=== PATIENT | male | born 1965 | race Caucasian/White ===

== ENCOUNTER → 2016-08-05 | Outpatient (CLI) | payer BC ==
[~2016-08-05] MED LIST: Iopamidol 755 MG/ML 500 ML Multipack Bottle IVPUSH STA
--- NOTE | 2016-08-06 16:17 | CT ---
EXAM DATE: 08/05/16 PATIENT'S AGE: 50 Patient: NARA STEVENSON Facility: [place], [place] Site . Site : 1965 Study: CT Abdomen/Pelvis [id number] 3:52:58 PM Ordering Physician: Lauri Lopez Final Report: HISTORY: Abdominal pain. Comparison: None. Technique: CT of the abdomen without and with intravenous contrast. Noncontrast imaging of the abdomen, followed by arterial and portal venous phase imaging. 100 cc of Isovue-370 IV. Coronal/sagittal reconstruction images. Findings: Lung bases: There is note pleural or pericardial effusion. There is milder on the mass 2. The lung bases demonstrate minimal dependent atelectasis. There is note basilar pneumo thorax. There is no acute airspace disease. No honeycomb formation. No traction bronchiectasis. Abdomen: Noncontrast images demonstrate normal liver attenuation. Normal hepatic morphology. No adrenal mass. No hydronephrosis. No perinephric inflammatory stranding. Uniform density in the pancreas. The pancreatic duct dilation. Note glandular atrophy. The arterial phase images demonstrate no adrenal mass. Symmetric nephrograms. The visceral artery branches are patent. There is no abdominal aortic aneurysm. Known hypervascular liver lesion. Portal venous phase images demonstrate mil hyperdense liver mass. The hepatic veins, portal vein on its branches, SMV, splenic vein are patent. Spleen size is normal. No renal mass. No abdominal lymphadenopathy. Normal caliber appendix. Nose small-bowel or colonic obstruction. The bone windows demonstrate known lytic or blastic bone lesions in the lower thoracic or lumbar spine. The alignment is preserved. Impression: 1. No findings to indicate acute or chronic pancreatitis. 2. Uniform enhancement of the pancreas, with no evidence for necrosis. 3. No pseudoaneurysm on arterial phase imaging. 4. Normal caliber biliary tree. 5. No abdominal lymphadenopathy. Dictated by Percy Pham MD @ Aug 05 2016 9:12PM (Electronic Signature) Report Signed by Proxy. [facility] CENTERMyranda
== END ==
LOC: MW.DI 14:49
PROVIDERS: ATTEND Family Medicine
DX: R10.9 Unspecified abdominal pain (principal)
CPT/HCPCS: 74170; Q9967

== ENCOUNTER 2020-07-12 00:09 | Emergency (ER) | payer BC ==
[2020-07-12 02:12] LABS: BLOOD UREA NITROGEN,BUN 14 mg/dL (7.0-18.0); CARBON DIOXIDE,CO2 28.1 mmol/L (21.0-32.0); CHLORIDE,CL 102 mmol/L (98-107); GLUCOSE RANDOM 108 mg/dL (74-106); POTASSIUM,K 4.1 mmol/L (3.5-5.1); SODIUM,NA 139 mmol/L (136-148)
[2020-07-12] MEDS ORDERED: Sulfamethoxazole/Trimethoprim 800-160 MG Tab PO ONE (02:27)
--- NOTE | 2020-07-12 03:14 | CR ---
Indication: Pain, redness, and cellulitis, recent nail in foot Technique: Three views of the left foot Comparison: None Findings/Impression: No evidence of fracture or osseous erosion. No radiopaque foreign body. No significant edema appreciable by radiography. No evidence of subcutaneous emphysema. Dictated by Jorge Johnson MD @ Jul 12 2020 2:45AM Signed by Dr. Jorge Johnson @ Jul 12 2020 3:13AM
--- NOTE | 2020-07-12 03:29 | EDM.PDOC ---
ED HPI GENERAL MEDICAL PROBLEM - General Chief Complaint: Skin Complaint Stated Complaint: STEPPED ON NAIL, LEFT FOOT Time Seen by Provider: 07/12/20 00:58 - History of Present Illness INITIAL COMMENTS - FREE TEXT/NARRATIVE: CHIEF COMPLAINT(S): Skin infection HISTORY OF PRESENT ILLNESS: This is a 54-year-old man with a past medical history of recent nail injury to patient's left foot who is on antibiotics who comes to the emergency department with a chief complaint of skin infection. The patient states that approximately 2 days ago he accidentally stepped on a nail and it went into the bottom of his left foot. He states that he followed up with his primary care physician where they removed the nail, gave him a tetanus shot and provided him with Keflex and ciprofloxacin. He states that he is currently not having any pain but he was instructed to come to the emergency department if the redness worsened outside the blue line that they tammy at the clinic. He denies any fevers, chills, purulent drainage. REVIEW OF SYSTEMS: Constitutional: Denies fever, chills. Eyes: Denies eye pain Ears, Nose, Mouth, & Throat: Denies earache Cardiovascular: Denies chest pain Respiratory: Denies shortness of breath Gastrointestinal: Denies Nausea, vomiting, diarrhea, hematochezia. Genitourinary: Denies hematuria Skin: Positive for redness to left foot MSK: Denies joint pain Neurological: Denies blurred vision, numbness, tingling, weakness Psychiatric: Denies depression PAST MEDICAL HISTORY: As per history of present illness and as reviewed below otherwise noncontributory. SURGICAL HISTORY: As per history of present illness and as reviewed below otherwise noncontributory. SOCIAL HISTORY: As per history of present illness and as reviewed below otherwise noncontributory. FAMILY HISTORY: As per history of present illness and as reviewed below otherwise noncontributory. EXAMINATION OF ORGAN SYSTEMS/BODY AREAS: Constitutional: Blood pressure was 148/72, heart rate 81, respiratory rate 18 with an oxygen saturation of 98% on room air. Temperature 36.8 General: Overall well-appearing man who is in no acute distress Psychiatric: Appropriate mood and affect. Eyes: No scleral icterus or conjunctival erythema ENMT: Moist mucous membranes. No pharyngeal erythema Cardiovascular: Regular, rate, and rhythm. No gallops, murmurs, or rubs. Bilateral upper extremity and lower extremity pulses symmetric and intact. No peripheral edema. No JVD. Respiratory: Lungs clear to auscultation bilaterally. No wheezes, rales, or rhonchi. Gastrointestinal: Soft, non-tender, non-distended. Normoactive bowel sounds Genitourinary: No suprapubic tenderness Musculoskeletal: The patient has full range of motion of the toes the ankle on the left foot without any pain. There is no significant swelling or deformity. Skin: Puncture lesion to the plantar aspect of the left foot without any surrounding erythema or purulent drainage. No fluctuance or induration. No crepitus. On the top of the patient's left foot there is evidence of a prior marker with erythema and some warmth which has extended past the marker posteriorly towards the ankle. Neurological: Alert, GCS 15 distal sensation is intact. MEDICAL DECISION MAKING AND COURSE IN THE ED WITH INTERPRETATION/REVIEW OF DIAGNOSTIC STUDIES: This is a 54-year-old man with a recent nail injury to the left foot with cellulitis who is on Keflex and ciprofloxacin who comes to the emergency department with worsening of the cellulitis. At this time we will obtain a repeat left foot x-ray. Patient is currently no pain therefore no pain medication will be administered. Will obtain basic labs. Given the failed outpatient therapy we will change the patient antibiotics to Bactrim to cover for MRSA. Laboratory: CBC is unremarkable. BMP reveals hyperglycemia at 108 otherwise unremarkable. The radiological images were viewed by myself along with reading the report from the radiologist. Left foot x-ray does not reveal any fracture or erosion. No subcutaneous emphysema or free air. After labs and imaging I did discuss results with the patient. I encouraged the patient to switch his antibiotic to Bactrim. He is to continue elevating the leg and applying ice and using pain medications as needed. If he has worsening of the redness would like him to return to the emergency department. I do recommend he follows up with orthopedics given the nail injury. He was amenable to discharge at this time and had no further questions DISPOSITION: The patient was discharged home in stable condition. The patient will follow up with orthopedics within 3 to 5 days CONDITION: Fair PROCEDURES: None FINAL IMPRESSION(S)/DIAGNOSES: 1. Acute cellulitis of the left foot, failed outpatient antibiotics Fareed Bangura M.D. Lfoot Pain Score (Numeric/FACES): 6 - Related Data Allergies Allergy/AdvReac Type Severity Reaction Status Date / Time No Known Allergies Allergy Verified 07/12/20 00:57 Home Meds: Home Meds Ciprofloxacin [Cipro XR] 500 mg PO BID 07/12/20 [History] Sulfamethoxazole/Trimethoprim [Bactrim Ds Tablet] 1 each PO BID #20 tablet 07/12/20 [Rx] cephALEXin [Cephalexin] 250 mg PO QID 07/12/20 [History] Past Medical History HEENT History: Reports: None Cardiovascular History: Reports: High Cholesterol Respiratory History: Reports: None Gastrointestinal History: Reports: GERD Genitourinary History: Reports: None Musculoskeletal History: Reports: None Neurological History: Reports: None Endocrine/Metabolic History: Reports: Obesity/BMI 30+ Hematologic History: Reports: None - Infectious Disease History Infectious Disease History: Reports: Chicken Pox, Mumps - Past Surgical History Head Surgeries/Procedures: Reports: None HEENT Surgical History: Reports: Naso-Sinus Surgery Other HEENT Surgeries/Procedures: Hx of sinus surgery. Musculoskeletal Surgical History: Reports: Arthroscopic Procedure Other Musculoskeletal Surgeries/Procedures:: shoulder arthroscopy - History Comment History Comment: etoh "socially" Social & Family History - Family History Family Medical History: No Pertinent Family History - Caffeine Use Caffeine Use: Reports: Coffee - Recreational Drug Use Recreational Drug Use: No ED ROS GENERAL - Review of Systems Review Of Systems: See Below ED EXAM, SKIN/RASH Exam: See Below Course - Vital Signs Last Recorded V/S: Last Vital Signs Temp 36.3 C 07/12/20 03:40 Pulse 78 07/12/20 03:40 Resp 18 07/12/20 03:40 BP 144/97 H 07/12/20 03:40 Pulse Ox 95 07/12/20 03:40 - Orders/Labs/Meds Labs: Laboratory Tests 07/12/20 07/12/20 Range/Units 01:45 01:45 WBC 7.73 (4.0-11.0) K/uL RBC 4.43 L (4.50-5.90) M/uL Hgb 13.8 (13.0-17.0) g/dL Hct 39.9 (38.0-50.0) % MCV 90.1 (80.0-98.0) fL MCH 31.2 (27.0-32.0) pg MCHC 34.6 (31.0-37.0) g/dL RDW Std Deviation 41.4 (28.0-62.0) fl RDW Coeff of Jaelyn 13 (11.0-15.0) % Plt Count 191 (150-400) K/uL MPV 9.80 (7.40-12.00) fL Neut % (Auto) 63.3 (48.0-80.0) % Lymph % (Auto) 23.7 (16.0-40.0) % [place] % (Auto) 11.4 (0.0-15.0) % Eos % (Auto) 1.2 (0.0-7.0) % Baso % (Auto) 0.4 (0.0-1.5) % Neut # (Auto) 4.9 (1.4-5.7) K/uL Lymph # (Auto) 1.8 (0.6-2.4) K/uL [place] # (Auto) 0.9 H (0.0-0.8) K/uL Eos # (Auto) 0.1 (0.0-0.7) K/uL Baso # (Auto) 0.0 (0.0-0.1) K/uL Nucleated RBC % 0.0 /100WBC Nucleated RBCs # 0 K/uL Sodium 139 (136-148) mmol/L Potassium 4.1 (3.5-5.1) mmol/L Chloride 102 (98-107) mmol/L Carbon Dioxide 28.1 (21.0-32.0) mmol/L BUN 14 (7.0-18.0) mg/dL Creatinine 1.2 (0.8-1.3) mg/dL Est Cr Clr Drug Dosing 71.82 mL/min Estimated GFR (MDRD) > 60.0 ml/min Glucose 108 H (74-106) mg/dL Calcium 8.3 L (8.5-10.1) mg/dL Meds: Medications Discontinued Medications Generic Name Dose Route Start Last Admin Trade Name Freq PRN Reason Stop Dose Admin Trimethoprim/Sulfamethoxazole 1 tab 07/12/20 02:27 07/12/20 02:43 Sulfamethoxazole/Trimethoprim 800-160 Mg Tab PO 07/12/20 02:28 1 tab ONETIME ONE Administration Departure - Departure Time of Disposition: 03:28 Disposition: Home, Self-Care 01 Condition: Fair Clinical Impression: Cellulitis - Discharge Information *PRESCRIPTION DRUG MONITORING PROGRAM REVIEWED*: No *COPY OF PRESCRIPTION DRUG MONITORING REPORT IN PATIENT DANTE: No Prescriptions: Sulfamethoxazole/Trimethoprim [Bactrim Ds Tablet] 1 each PO BID #20 tablet Instructions: Cellulitis, Adult, [id number] Referrals: Daryl Cintron MD [Primary Care Provider] - Forms: ED Department Discharge Additional Instructions: You were evaluated today on an emergent basis. At this time your x-ray and your labs were normal. Given that the redness did increase past the prior line I do recommend you stop taking Keflex and switch to Bactrim. Please take Bactrim twice a day until antibiotics are gone. I would like you to follow-up with orthopedics within 1 week for further evaluation. If you have any worsening of the redness, worsening pain, increased swelling, pain with movement of your toes I would like you to return to the emergency department. Please continue to take Tylenol and Motrin for pain relief and keep the left lower extremity elevated. [facility] [address], [address] [place] [address] The patient is informed of any results of their evaluation and diagnostic workup and all questions are answered. They are given discharge instructions and return precautions. The patient is stable for discharge. The patient states they understand and agree with the plan and that they will return if their symptoms get worse or if they have any new concerns. The following information is given to patients seen in the emergency department who are being discharged to home. This information is to outline your options for follow-up care. We provide all patients seen in our emergency department with a follow-up referral. The need for follow-up, as well as the timing and circumstances, are variable depending upon the specifics of your emergency department visit. If you don't have a primary care physician on staff, we will provide you with a referral. We always advise you to contact your personal physician following an emergency department visit to inform them of the circumstance of the visit and for follow-up with them and/or the need for any referrals to a consulting specialist. The emergency department will also refer you to a specialist when appropriate. This referral assures that you have the opportunity for follow-up care with a specialist. All of these measure are taken in an effort to provide you with optimal care, which includes your follow-up. Under all circumstances we always encourage you to contact your private physician who remains a resource for coordinating your care. When calling for follow-up care, please make the office aware that this follow-up is from your recent emergency room visit. If for any reason you are refused follow-up, please contact the [facility] Emergency Department at and asked to speak to the emergency department charge nurse. Sepsis Event Note (ED) - Evaluation Sepsis Screening Result: No Definite Risk
[2020-07-12 03:44] VITALS: BP 144/97; PULSE 78
== END 2020-07-12 03:44 | disposition home or self-care (01) ==
LOC: MW.ED 00:09
DX: L03.116 Cellulitis of left lower limb (principal); E66.9 Obesity, unspecified; Z68.32 Body mass index [BMI] 32.0-32.9, adult
CPT/HCPCS: 36415; 73630; 80048; 85025; 99283; A9270

== ENCOUNTER 2024-01-12 04:42 | Emergency (ER) | payer BC ==
[2024-01-12 04:58] LABS: APPEARANCE,URINE CLEAR; BILIRUBIN,URINE NEGATIVE (NEGATIVE); COLOR,URINE YELLOW; GLUCOSE,URINE NEGATIVE (NEGATIVE); KETONES,URINE NEGATIVE (NEGATIVE); LEUKOCYTE ESTERASE,URINE NEGATIVE (NEGATIVE); NITRITE,URINE NEGATIVE (NEGATIVE); OCCULT BLOOD,URINE MODERATE (NEGATIVE); PROTEIN,URINE NEGATIVE (NEGATIVE); UROBILINOGEN,URINE 0.2 EU/dL (<2.0)
[2024-01-12 05:03] LABS: BASOPHILS ABSOLUTE AUTO 0.05 K/uL (0.00-0.20); BASOPHILS PERCENT AUTO 0.6 % (0.0-1.0); EOSINOPHILS ABSOLUTE AUTO 0.16 K/uL (0.00-0.45); EOSINOPHILS PERCENT AUTO 2.1 % (0.0-6.0); HEMATOCRIT 43.2 % (42.0-52.0); HEMOGLOBIN 15.2 g/dL (14.0-18.0); IMMATURE GRAN ABSOLUTE AUTO 0.04 K/uL (0.00-0.05); IMMATURE GRAN PERCENT AUTO 0.5 % (0.0-0.4); LYMPHOCYTES PERCENT AUTO 32.4 % (24.0-44.0); MEAN CORPUSCULAR HEMOGLOBIN 30.8 pg (28.0-32.0); MEAN CORPUSCULAR HGB CONC 35.2 g/dL (32.0-36.0); MEAN CORPUSCULAR VOLUME 87.6 fL (83.0-99.0); MEAN PLATELET VOLUME 9.9 fL (9.4-12.4); MONOCYTES ABSOLUTE AUTO 0.76 K/uL (0.00-0.80); MONOCYTES PERCENT AUTO 9.9 % (0.0-8.0); NEUTROPHILS PERCENT AUTO 54.5 % (41.0-71.0); PLATELET COUNT,PLT 218 K/uL (150-400); RED BLOOD CELL COUNT 4.93 M/uL (4.52-5.90); WHITE BLOOD CELL COUNT,WBC 7.71 K/uL (3.9-11.3)
[2024-01-12 05:06] LABS: BACTERIA,URINE FEW (NEGATIVE); EPITHELIAL CELLS,URINE FEW (NONE-FEW); WBC,URINE 0-3 (0-5/HPF)
[2024-01-12] MEDS: Morphine 4 MG/ML Syringe IVPUSH ONE (05:06)
[2024-01-12] MEDS: Sodium Chloride 0.9% 10 ML Syringe FLUSH PRN (05:06)
[2024-01-12] MEDS: Ondansetron 4 MG/2 ML SDV IVPUSH ONE (05:06)
[2024-01-12] MEDS: Sodium Chloride 0.9% 2.5 ML Syringe FLUSH PRN (05:06)
[2024-01-12] MEDS: Sodium Chloride 0.9% 1,000 ML IV STA (05:06)
[2024-01-12 05:25] LABS: A/G RATIO 1.1 (0.9-1.6); ALBUMIN 3.7 g/dL (3.4-5.0); BILIRUBIN TOTAL 0.5 mg/dL (0.2-1.0); CALCIUM 9.5 mg/dL (8.5-10.1); CARBON DIOXIDE,CO2 28.9 mmol/L (21.0-32.0); CREATININE 1.3 mg/dL (0.8-1.3); EST CRCL DRUG DOSING (CG) 63.17 mL/min; PROTEIN TOTAL,TP 7.2 g/dL (6.4-8.2)
[2024-01-12] MEDS: Iopamidol 755 MG/ML 500 ML Multipack Bottle IVPUSH ONE (06:06)
[2024-01-12 06:35] VITALS: BP 140/90; PULSE 68
== END 2024-01-12 06:33 | disposition home or self-care (01) ==
LOC: MW.ED 04:42
DX: N13.2 Hydronephrosis with renal and ureteral calculous obstruction (principal); N21.0 Calculus in bladder; E66.9 Obesity, unspecified; Z68.31 Body mass index [BMI] 31.0-31.9, adult; Z79.899 Other long term (current) drug therapy
CPT/HCPCS: 36415; 74177; 80053; 81001; 85025; 96374; 96375; 99284; J2270; J2405; J3490; J7030; Q9967

== ENCOUNTER 2024-05-07 08:29 | Day surgery (SDC) | payer BC ==
[2024-05-07] MEDS: Lactated Ringers 1,000 ML IV SCH (08:53)
[2024-05-07] MEDS ORDERED: propofoL 500 MG/50 ML 50 ML ONE (09:59)
[2024-05-07] MEDS ORDERED: Lactated Ringers 1,000 ML IV SCH (10:45)
[2024-05-07 11:49] VITALS: BP 139/75; PULSE 57
== END 2024-05-07 11:25 | disposition home or self-care (01) ==
LOC: MW.SDS 08:29
PROVIDERS: ATTEND Surgery
DX: Z12.11 Encounter for screening for malignant neoplasm of colon (principal); E78.00 Pure hypercholesterolemia, unspecified; K21.9 Gastro-esophageal reflux disease without esophagitis; Z79.899 Other long term (current) drug therapy
CPT/HCPCS: 45378; J2704; J7120